=== PATIENT | male | born 1970 | race Hispanic/Latino ===

== ENCOUNTER 2022-10-29 03:00 | Emergency (ER) | payer OTHER ==
[~2022-10-29] VITALS: Ht 165.1 cm; Wt 83.9 kg
[2022-10-29] MEDS ORDERED: KETOROLAC 30MG VIAL (30MG/ML) ONE (03:08)
[2022-10-29] MEDS ORDERED: ONDANSETRON 4MG INJ ONE (03:08)
[2022-10-29] MEDS ORDERED: 0.9%NACL 1000ML 1,000 ML IV SCH (03:30)
[2022-10-29] MEDS ORDERED: ONDANSETRON 4MG INJ IVP ONE (03:30)
[2022-10-29] MEDS ORDERED: KETOROLAC 30MG VIAL (30MG/ML) IVP ONE (03:30)
[2022-10-29 03:32] LABS: BASOPHILS % (AUTO) 0.4 % (0.0-5.0); HEMATOCRIT 40.5 % (42-54); LYMPHOCYTES % (AUTO) 15.5 % (21.0-51.0); MEAN CORPUSCULAR HEMOGLOBIN 29.3 pg (27.0-33.0); MEAN CORPUSCULAR HGB CONC 34.6 g/dL (32.0-36.0); MEAN CORPUSCULAR VOLUME 84.7 fL (79-99); MONOCYTES % (AUTO) 10.1 % (3.0-13.0); NEUTROPHILS % (AUTO) 71.5 % (40.0-77.0); PLATELET COUNT (AUTO) 214 K/uL (130-400); RED BLOOD CELL COUNT(AUTO) 4.78 MIL/uL (4.50-6.20); RED CELL DISTRIBUTION WIDTH 12.4 % (11.0-15.5); WHITE BLOOD COUNT (AUTO) 9.6 K/uL (4.8-10.8)
[2022-10-29 03:38] LABS: CREATININE 1.6 mg/dL (0.5-1.5); POTASSIUM 3.7 mmol/L (3.5-5.1)
[2022-10-29 03:42] LABS: ALBUMIN 3.7 g/dL (3.5-5.0); TOTAL PROTEIN, SERUM 7.4 g/dL (6.0-8.3)
[2022-10-29] MEDS ORDERED: MORPHINE 4 MG SYG ONE (04:07)
[2022-10-29] MEDS ORDERED: MORPHINE 4 MG SYG IVP ONE (04:30)
[2022-10-29 05:30] VITALS: BP 115/60
[2022-10-29] MEDS ORDERED: TAMS-1 PO (06:41)
[2022-10-29] MEDS ORDERED: ONDA-104 PO (06:41)
[2022-10-29] MEDS ORDERED: IBUP-1493 PO (06:41)
== END 2022-10-29 06:46 | disposition home or self-care (01) ==
LOC: EDH 03:00
DX: N20.0 Calculus of kidney (principal); Z98.890 Other specified postprocedural states
CPT/HCPCS: 99285; 74176; 96374; 96375; 96361; 80053; 85025; 36415; J7030; J2405; J2270; J1885